=== PATIENT | female | born 1940 | race Two or more races ===

== ENCOUNTER 2021-08-19 10:03 | Emergency (ER) | payer OTHER ==
[~2021-08-19] VITALS: Ht 170.2 cm; Wt 62.6 kg
[2021-08-19 13:17] VITALS: BP 121/63
== END 2021-08-19 14:41 | disposition home or self-care (01) ==
LOC: ER 10:03
DX: S63.502A Unspecified sprain of left wrist, initial encounter (principal); S00.81XA Abrasion of other part of head, initial encounter; E78.5 Hyperlipidemia, unspecified; W01.0XXA Fall on same level from slipping, tripping and stumbling without subsequent striking against object, initial encounter; Y93.89 Activity, other specified; Y92.89 Other specified places as the place of occurrence of the external cause; Y99.8 Other external cause status
CPT/HCPCS: 70450; 73090; 73110